=== PATIENT | female | born 1945 | race Caucasian/White ===

== ENCOUNTER 2017-03-06 14:38 | Emergency (ER) | payer OTHER, MEDICARE ==
[~2017-03-06] VITALS: Ht 144.8 cm; Wt 48.1 kg
[~2017-03-06 14:38] MED LIST: COLACE100 M1 PO; LEXAPRO5 M1 PO; LOVENOX40 MG/0.1 SC; MAPAP500 M2 PO; PERCOCET 5-3251 EACH PO
[2017-03-06 15:03] LABS: ABSOLUTE BASOPHIL COUNT 0 /CUMM (0.0-0.2); ABSOLUTE EOSINOPHIL COUNT 0.1 /CUMM (0.0-0.7); ABSOLUTE GRANULOCYTE CT 4.7 /CUMM (1.4-6.5); ABSOLUTE LYMPH COUNT 1.4 /CUMM (1.2-3.4); ABSOLUTE MONOCYTE COUNT 0.5 /CUMM (0.10-0.60); BASOPHIL % 0.6 % (0.0-2.0); EOSINOPHIL % 1.8 % (0-5); GRANULOCYTE % 70.2 % (42.2-75.2); HEMATOCRIT 34.4 % (37-47); MEAN CORPUSCULAR HGB CONC 32.9 G/DL (33.0-37.0); MEAN PLATELET VOLUME 6.7 FL (7.4-10.4); PLATELET COUNT 290 /CUMM (130-400); RBC DISTRIBUTION WIDTH 15.8 % (11.5-14.5); RED BLOOD CELL CT 4.35 /CUMM (4.20-5.40); WHITE BLOOD CELL COUNT 6.7 /CUMM (4.8-10.8)
--- NOTE | 2017-03-06 17:22 | ED GI/GU/ABDOMINAL COMPLAINT ---
History of Present Illness General Chief Complaint: Abdominal Pain/Flank Pain Stated Complaint: ABD PAIN, +ND, X 3 DAYS Source: patient Exam Limitations: no limitations Vital Signs & Intake/Output Vital Signs & Intake/Output Vital Signs Date Time Temp Pulse Resp B/P B/P Pulse O2 O2 Flow FiO2 Mean Ox Delivery Rate 03/06 1815 98.6 60 18 94/50 99 Room Air 03/06 1454 98.8 73 18 93/59 98 Room Air Allergies Coded Allergies: No Known Drug Allergies (NKDA 10/22/16) Triage Note: 72 YO FEMALE TO TRIAGE C/O LOWER ABD/PELVIC PAIN. 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 STATES SHE IS STILL C/O SEVERE LOWER ABD PAIN. PER DAUGHTER PT HAS BEEN URINATING ALOT BUT "THATS NOT UNUSUAL FOR HER" DENIES NVD. PTS BP 93/59, PER DAUGHTER THAT IS NORMAL FOR PT. EKG COMPLETED ON ARRIVAL. PT TOOK 1 PERCOCET AROUND 1PM WITHOUT RELIEF. Triage Nurses Notes Reviewed? yes ? N Is pt currently ? No Onset: Gradual Timing: recent history Quality/Severity: moderate Location: left lower quadrant, right lower quadrant Radiation: no radiation Activities at Onset: none Prior Abdominal Problems: similar symptoms Past Sexual History: Unobtainable at this time No Modifying Factors: none HPI: Patient is a 72-year-old female presenting to the emergency department with her daughter with chief complaint of burning in the vaginal area as well as some lower abdominal discomfort anything going on for the past 1-2 months. She has seen her DIRECTOR OF MEDICAL REVIEW, Dr. Turner for this problem 2 times in the past several weeks. Initially she was put on Macrobid for questionable urinary tract infection. She was then put on Flagyl for bacterial infection in her vagina. Patient does admit to thick kuo vaginal discharge at times. She did notice hematuria that started today. Burning is worse with urination. Denies any rashes. Family does report that she had history of pelvic fracture 5 months ago. Was doing well. No new injuries. Has been taking Percocet at home with little relief in the pain. Also taking Pyridium without relief and the dysuria. (Albin BOLTON,Heaven) Reconcile Medications Carbidopa/Levodopa (Carbidopa-Levo ER 25-100 Tab) 25 MG-100 MG TABLET.ER 1 TAB PO BID PARKINSONS (Reported) Escitalopram Oxalate (Lexapro) 5 MG TABLET 1 TAB PO DAILY MENTAL HEALTH ( Reported) Ferrous Sulfate (IRON) 325 MG (65 MG IRON) TABLET 1 TAB PO DAILY SUPPLEMENT ( Reported) Melatonin 5 MG TABLET 1 TAB PO QPM SUPPLEMENT (Reported) Metronidazole (Flagyl) 500 MG TABLET 1 TAB PO Q12H ANTIBIOTIC (Reported) Sulfamethoxazole/Trimethoprim (Bactrim Ds Tablet) 800 MG-160 MG TABLET 1 TAB PO BID UTI (Josselyn WADE,Irma) Past History Travel History Traveled to [place] past 21 day No Medical History Any Pertinent Medical History? see below for history Neurological: multiple sclerosis, Parkinson's disease, pt is deaf, mute EENT: hearing loss Cardiovascular: NONE Respiratory: NONE Gastrointestinal: NONE Hepatic: NONE Renal: NONE Musculoskeletal: NONE Psychiatric: depression, insomnia Endocrine: NONE Blood Disorders: NONE Cancer(s): NONE [employer]BER/Reproductive: NONE History of MRSA: No History of VRE: No History of CDIFF: No Surgical History Surgical History: cholecystectomy, left hip repair - 09/2016 Psychosocial History What is your primary language Malawian Sign Language Tobacco Use: Never used Family History Hx Contributory? No (Heaven Chacon) Review of Systems Review of Systems Constitutional: Reports: no symptoms. Comments Review of systems: See HPI, All other systems negative. Constitutional, no chills fever or weight loss HEENT: No visual changes no sore throat no congestion Cardiovascular: No chest pain ,palpitation , orthopnea or ankle swelling Skin, no jaundice no rashes Respiratory: No dyspnea cough sputum or hemoptysis GI: No nausea no vomiting : POS HEMATURIA AND DYSURIA Muscle skeletal: no back pain, no neck pain, Neurologic: No numbness no confusion NO HEADACHES Psych: No stress anxiety or depression,. Heme/endocrine: No bruising no bleeding no polyuria or polydipsia Immunology: No splenectomy or history of AIDS (Heaven Chacon) Physical Exam Physical Exam General Appearance: well developed/nourished, no apparent distress, alert, awake , APPEARS UNCOMFORTABLE Gastrointestinal: normal bowel sounds, soft Comments: Well-developed well-nourished person in no acute distress HEENT: Atraumatic, normocephalic Neck: Normal inspection Back: Nontender, no CVA tenderness. Cardiovascular: Regular rate and rhythms no murmurs rubs or gallops Respiratory: Chest nontender. No respiratory distress.breath sounds clear to auscultation bilaterally Abdomen: Soft, mildly tender palpation the suprapubic region without rebound or guarding, nondistended, no appreciable organomegaly. Normal bowel sounds. No ascites : Small amount of white discharge noted in the vaginal canal, thin and milky, slight irritation and bleeding noted on the cervix, no obvious lesions and no cervical motion tenderness, nontender to palpation over the left and right adnexal area. Extremity: 2+ pitting edema in the lower extremities bilaterally, no pain to palpation. Neuro: Alert oriented x3 Skin: No appreciable rash on exposed skin, skin is warm and dry. Psych: Mood and affect is normal, memory and judgment is normal. Core Measures ACS in differential dx? No Sepsis Present: No Sepsis Focused Exam Completed? No (Albin BOLTON,Heaven) Progress Differential Diagnosis: UTI/pyelo, AVOID VAGINITIS, uti, BACTERIAL VAGINOSIS, Plan of Care: Orders Procedure Date/time Status TRICHOMONAS 03/06 1757 Complete POTASSIUM HYDROXIDE (ALFONSO) 03/06 175 Complete GENITAL CULTURE 03/06 175 Active CHLAMYDIA-GC DNA PROBE 03/06 175 Active CULTURE,URINE 03/06 174 Active URINALYSIS 03/06 1744 Complete COMPREHENSIVE METABOLIC PANEL 03/06 1452 Complete CBC WITHOUT DIFFERENTIAL 03/06 1452 Complete EKG 03/06 1440 Active Laboratory Tests 03/06/17 1745: Urine Color YEL, Urine Clarity CLDY H, Urine pH 6.0, Ur Specific [place] 1.020, Urine Protein 30 H, Urine Ketones NEG, Urine Nitrite POS H, Urine Bilirubin NEG, Urine Urobilinogen 1.0, Ur Leukocyte Esterase LARGE H, Ur Microscopic SEDIMENT EXAMINED, Urine RBC 1-3, Urine WBC PACKD H, Ur Epithelial Cells FEW, Urine Bacteria PACKD H, Urine Mucus FEW, Urine Hemoglobin TRACE-INTACT, Urine Glucose NEG 03/06/17 1455: Anion Gap 11, Estimated GFR > 60, BUN/Creatinine Ratio 25.0, Glucose 120 H, Calcium 9.1, Total Bilirubin 0.3, AST 25, ALT 24, Alkaline Phosphatase 59, Total Protein 6.6, Albumin 3.7, Globulin 2.9, Albumin/Globulin Ratio 1.3, CBC w Diff NO MAN DIFF REQ, RBC 4.35, MCV 79.0 L, MCH 26.0 L, RDW 15.8 H, MPV 6.7 L, Gran % 70.2, Lymphocytes % 20.6, Monocytes % 6.8, Eosinophils % 1.8, Basophils % 0.6, Absolute Granulocytes 4.7, Absolute Lymphocytes 1.4, Absolute Monocytes 0.5 , Absolute Eosinophils 0.1, Absolute Basophils 0, PUBS MCHC 32.9 L Microbiology 03/06 2036 GENITAL: GC DNA Probe - RECD 03/06 2036 GENITAL: Chlamydia DNA Probe (SIMON) - RECD 03/06 2036 GENITAL: ALFONSO Preparation - COMP 03/06 2036 GENITAL: Trichomonas Preparation - COMP 03/06 2036 GENITAL: Genital Culture - RECD 03/06 1744 URINE ROUT: Urine Culture - RECD Diagnostic Imaging: Viewed by Me: CT Scan. Discussed w/RAD: CT Scan. Radiology Impression: PATIENT: FELI ROSALES PRESENT AGE: 72 PATIENT ACCOUNT NO: [id number] : 46 LOCATION: [facility] ORDERING PHYSICIAN: Derek BOLTON SERVICE DATE: 03/06/17 EXAM TYPE: CAT - CT ABD & PELVIS W IV CONTRAST EXAMINATION: CT ABDOMEN AND PELVIS WITH CONTRAST CLINICAL INFORMATION: Abdominal pain. COMPARISON: February 2010. TECHNIQUE: Contiguous axial thin section helical images of the abdomen and pelvis were performed following the administration of 95 mL of intravenous Optiray 320. The data set was reformatted in the coronal and sagittal planes and reviewed on an independent workstation. DLP: 237 mGy-cm. FINDINGS: The visualized lung bases are clear. The visualized portions of the heart are unremarkable. The liver is of normal size and attenuation without concerning focal lesions nor intrahepatic biliary ductal dilation. There is a stable cyst within the right lobe of the liver. The patient is status post cholecystectomy. Surgical clips are present. The spleen, pancreas, adrenal glands are unremarkable. Both kidneys are of normal size and attenuation without hydronephrosis or nephrolithiasis. Following the administration of IV contrast, prompt symmetric nephrograms are displayed. There is a stable exophytic cyst emanating from the upper pole of the left kidney. There is no abdominal free fluid. There is neither mesenteric nor retroperitoneal lymphadenopathy. Normal unopacified loops of small and large bowel are identified. There is no pelvic free fluid. The urinary bladder is unremarkable. There is neither pelvic nor inguinal lymphadenopathy. Bone windows : Neither sclerotic nor lytic bone lesions are identified. IMPRESSION: Unremarkable abdominal and pelvic CT. DICTATED BY: Aniceto Blank MD DATE/TIME DICTATED:03/06/172016 ENROLLMENT SERVICES VICE PRESIDENT:DOMONIQUE DATE/TIME TRANSCRIBED:2016 CONFIDENTIAL, DO NOT COPY WITHOUT APPROPRIATE AUTHORIZATION. < Electronically signed in Other Vendor System> SIGNED BY: Aniceto Blank MD 03/06/172038 Initial ED EKG: SINUS RHYTHM 72 BPM Comments: Patient does have convincing urinary tract infection on urinalysis. No elevation in white blood cell count. CT scan is negative. ALFONSO and Trichomonas saunter negative. exam was essentially unremarkable. Patient will follow-up with DIRECTOR OF MEDICAL REVIEW as well as urology. Discussed with Dr. Arcos and she agrees with plan. Patient given dose of IV Rocephin for urinary tract infection here in the emergency department. (Heaven Chacon) Departure Departure Time of Disposition: 2099 Disposition: HOME OR SELF CARE Condition: Stable Clinical Impression Primary Impression: Urinary tract infection Qualifiers: Urinary tract infection type: site unspecified Referrals: Brian WADE,Abhishek Cisneros MD,Pedro Hester (PCP/Family) Additional Instructions: Follow-up with urology, call to make an appointment. YOU may need further evaluation for urinary symptoms. Take antibiotics as prescribed. Increase fluids. Return for worsening symptoms or concerns. Departure Forms: Customer Survey General Discharge Information Prescriptions: Current Visit Scripts Sulfamethoxazole/Trimethoprim (Bactrim Ds Tablet) 1 TAB PO BID #10 TAB (Heaven Chacon) PA/COVER SEAMER Co-Sign Statement Statement: ED Attending supervision documentation- [] I saw and evaluated the patient. I have also reviewed all the pertinent lab results and diagnostic results. I agree with the findings and the plan of care as documented in the PA's/COVER SEAMER's documentation. [X] I have reviewed the ED Record and agree with the PA's/COVER SEAMER's documentation. [] Additions or exceptions (if any) to the PAs/COVER SEAMER's note and plan are summarized below: [] (Josselyn WADE,Irma)
[2017-03-06 18:15] VITALS: BP 94/50
--- NOTE | 2017-03-06 20:39 | CT SCAN REPORT ---
EXAMINATION: CT ABDOMEN AND PELVIS WITH CONTRAST CLINICAL INFORMATION: Abdominal pain. COMPARISON: February 2010. TECHNIQUE: Contiguous axial thin section helical images of the abdomen and pelvis were performed following the administration of 95 mL of intravenous Optiray 320. The data set was reformatted in the coronal and sagittal planes and reviewed on an independent workstation. DLP: 237 mGy-cm. FINDINGS: The visualized lung bases are clear. The visualized portions of the heart are unremarkable. The liver is of normal size and attenuation without concerning focal lesions nor intrahepatic biliary ductal dilation. There is a stable cyst within the right lobe of the liver. The patient is status post cholecystectomy. Surgical clips are present. The spleen, pancreas, adrenal glands are unremarkable. Both kidneys are of normal size and attenuation without hydronephrosis or nephrolithiasis. Following the administration of IV contrast, prompt symmetric nephrograms are displayed. There is a stable exophytic cyst emanating from the upper pole of the left kidney. There is no abdominal free fluid. There is neither mesenteric nor retroperitoneal lymphadenopathy. Normal unopacified loops of small and large bowel are identified. There is no pelvic free fluid. The urinary bladder is unremarkable. There is neither pelvic nor inguinal lymphadenopathy. Bone windows: Neither sclerotic nor lytic bone lesions are identified. IMPRESSION: Unremarkable abdominal and pelvic CT.
[2017-03-06] MEDS ORDERED: BACTRIM DS TAB1 EACH PO (21:02)
[2017-03-06] MEDS ORDERED: FLAGYL500 MG PO (21:11)
[2017-03-06] MEDS ORDERED: LEXAPRO5 M1 PO (21:12)
[2017-03-06] MEDS ORDERED: CARBIDOPA-LEVO1 EA10 PO (21:12)
[2017-03-06] MEDS ORDERED: IRON325 M3 PO (21:13)
[2017-03-06] MEDS ORDERED: MELATONIN5 M7 PO (21:14)
== END 2017-03-06 21:06 ==
LOC: ERH 14:38
PROVIDERS: Emergency Medicine
DX: N39.0 Urinary tract infection, site not specified (principal)
CPT/HCPCS: 87070; 74177; 81001; 87086; 87491; 87591; 93005; 93010; J0696

== ENCOUNTER → 2017-07-09 | Day surgery (SDC) | payer OTHER, MEDICARE ==
[~2017-07-09] VITALS: Ht 144.8 cm; Wt 48.1 kg
[~2017-07-09] MED LIST changes: +BACTRIM DS TAB1 EACH PO; +CARBIDOPA-LEVO1 EA10 PO; +FLAGYL500 MG PO; +IRON325 M3 PO; +MELATONIN5 M7 PO
--- NOTE | 2017-07-12 18:14 | Operative Report ---
See Addendum Operative/Inv Procedure Report Surgery Date: 07/09/17 Name of Procedure: laparoscopic robotic BC, LIH repair with mesh Pre-Operative Diagnosis: LIH Post-Operative Diagnosis: same, indirect Estimated Blood Loss: scant Surgeon/Head Correction Officer: Ann Marie WADE,Karan BOLTON Anesthesia: general endotracheal tube Operative/Procedure Note Note: Patient was positioned supine on the table. After successful induction of general anesthesia, her abdomen was prepped and draped in usual sterile fashion, based on her body habitus and short stature we aimed our trocar sites to be in the mid-epigastrium, one in the middle and 2 bilateral, local anesthetic was injected in a spot left subcostal laterally, a roughly 1 cm incision was made with a 15 blade and then using a 5 mm optical trocar inserted into the 8 mm robotic trocar, attached to a 5 mm camera and the trocar was advanced through the abdominal wall watching on the screen, as the trocar passes through the layers, alternating colors, yellow fat white fascia red muscle, until the tip just seems to jerome the inner thin peritoneal layer. At that point, I stop pushing and check if it's open by turning on the gas. If the belly insufflates then you know you can advance that large trocar into an empty space more directly without injuring the viscera. In this case actually initially it did appear that the abdomen insufflated but it was subcutaneous, she had a very thin abdominal wall but we were able to advance the trochars safely and into the peritoneum and then the gas was turned on to 15 mm. then using 8 mm trochars we inserted 2 of them, in similar fashion to the abdominal wall under direct vision with the camera one in the mid epigastrium and one in the right lateral abdomen symmetrically placed. At this point you could see the left inguinal hernia, we developed started the perineal flap at the level of the iliac crest starting laterally to medial today umbilical ligament with cautery and then dissected within the flap the inguinal anatomy. Using mostly blunt dissection with a bipolar fenestrated grasper and a scissors, first Ham's ligament is swept off medially, checking the medial spaces, direct and femoral. There were no hernias there. Then briefly skipping over the area of the iliac fat pad, we developed the iliopubic tract out laterally to the iliac crest. Then we returned to the area of the fat pad where the hernia sac and the round ligament were adherent, coursing up into an attenuated deep ring. There was some preperitoneal fat up inside in front that was dragged down and out, along with the lip of the peritoneal sac down off the round ligament at the bottom there was a very small rent in the flap which was closed with 3-0 Vicryl suture. Once the hernia sac is from the cord structures down to the below Ham's medially at the bladder, and laterally the iliopubic tract below this, a Parietex sided mesh without the keyhole or the suture, is marked and stuffed down the camera trocar, then unfurled in a systematic fashion, to cover both the hernia and the direct spaces and to make sure its tucked below Ham's ligament and in that crevice Retzius space by the bladder and laterally beneath the iliopubic tract without curling and superiorly towards the camera. There is a seamed part of the mesh, that covers the iliac fat pad like a skirt. The mesh was adjusted back and forth so the edges are not curling. A trial run of letting the gas escape a little bit to see how the mesh would lay as the peritoneum comes back down is done, then when we're satisfied, we brought up the peritoneal flap and sewed it across shut with a 2-0 V lock. We then let rest of the gas escape, pulling out the instruments and trochars. Because her abdominal wall was so thin although these were 8 mm ports left lateral initial one fascia is closed with a [id number] Vicryl suture. Then we closed the 3 skin incisions with interrupted 4-0 Monocryl followed by Mastisol, Steri-Strips and Band-Aids. Overall estimated blood loss was minimal, lap and sponge counts were correct, wound expectancy was clean, IV fluids crystalloid, complications none, patient tolerated the procedure well, did not significantly fox during extubation and was returned to the recovery room in satisfactory condition.
== END ==
LOC: STS 02:34
DX: K40.90 Unilateral inguinal hernia, without obstruction or gangrene, not specified as recurrent (principal); D64.9 Anemia, unspecified; G20 Parkinson's disease
CPT/HCPCS: C1781; C9399; J0131; J0690; J3490